=== PATIENT | male | born 1940 | race American Indian/Alaskan Native ===

== ENCOUNTER 2017-03-06 10:05 | Emergency (ER) | payer MEDICARE ==
[2017-03-06 10:13] VITALS: TEMP 98
--- NOTE | 2017-03-06 11:01 | C.PDOC ---
History Of Present Illness 77 year old male with PMHx of HTN, DM, arthritis presents to the ED for evaluation of right knee pain and chronic pedal edema. Patient reports his left leg has been swollen for a while qith n improvement, now his skin has been falling off and he has noted some bleeding. Patient states he has not seen a doctor in more than a year for evaluation of his complaints, states he used lotion with no relief. Patient denies fever, chills, nausea, vomit, diarrhea, abdominal pain, CP, SOB, weakness, numbness. Time Seen by Provider: 03/06/17 10:21 Chief Complaint (Nursing): Abnormal Skin Integrity History Per: Patient History/Exam Limitations: no limitations Onset/Duration Of Symptoms: Persistent Current Symptoms Are (Timing): Still Present Location Of Injury: Right: Leg (swelling), Left: Leg Quality Of Symptoms: Painful, Swollen Recent travel outside of the [place]: No Additional History Per: Patient Past Medical History Reviewed: Historical Data, Nursing Documentation, Vital Signs Vital Signs: Last Vital Signs Temp 98 F 03/06/17 10:09 Pulse 90 03/06/17 10:09 Resp 20 03/06/17 10:09 BP 128/71 03/06/17 10:09 Pulse Ox 99 03/06/17 12:59 - Medical History PMH: Diabetes, HTN, Hypercholesterolemia, Hyperlipidemia, Seizures Surgical History: No Surg Hx Family History: States: Unknown Family Hx - Social History Hx Tobacco Use: No Hx Alcohol Use: No Hx Substance Use: No - Immunization History Hx Tetanus Toxoid Vaccination: No Hx Influenza Vaccination: Yes Hx Pneumococcal Vaccination: No Review Of Systems Constitutional: Negative for: Fever, Chills Cardiovascular: Negative for: Chest Pain, Palpitations Respiratory: Negative for: Cough, Shortness of Breath Gastrointestinal: Negative for: Nausea, Vomiting, Abdominal Pain Musculoskeletal: Positive for: Leg Pain (B/L pedal edema). Negative for: Back Pain Skin: Positive for: Rash Neurological: Negative for: Weakness, Numbness Physical Exam - Physical Exam Appears: Non-toxic, No Acute Distress Skin: Normal Color, Warm, Dry Head: Atraumatic, Normacephalic Nose: No Discharge, No Deformity Neck: Normal ROM, Supple Chest: Symmetrical Cardiovascular: Rhythm Regular, No Murmur Respiratory: Normal Breath Sounds, No Rales, No Rhonchi, No Wheezing Gastrointestinal/Abdominal: Soft, No Tenderness, No Guarding, No Rebound Extremity: Normal ROM, Pedal Edema (B/L left > right), Calf Tenderness (slight on left leg), Capillary Refill (< 2 seconds), No Deformity, Other (desquamation of skin left lower leg, slight warmth ) Pulses: Left Dorsalis Pedis: Normal, Right Dorsalis Pedis: Normal Neurological/Psych: Oriented x3, Normal Speech, Normal Cognition ED Course And Treatment - Laboratory Results Result Diagrams: 03/06/17 11:14 03/06/17 11:14 O2 Sat by Pulse Oximetry: 99 (On RA) Pulse Ox Interpretation: Normal - Radiology CXR: Viewed By Me, Read By Radiologist CXR Interpretation: Yes: Other (Cardiomegaly. Mild pulmonary venous congestion. Bibasilar atelectasis/ infiltrates and/or small effusions.) Medical Decision Making Medical Decision Making: Impression : B/L chronic pedal edema, right knee pain Plan: * EKG * Labs * CXR * Venous Duplex Scan Disposition Counseled Patient/Family Regarding: Studies Performed, Diagnosis, Need For Followup, Rx Given - Disposition Referrals: [facility] [Outside] Disposition: HOME/ ROUTINE Disposition Time: 13:28 Condition: GUARDED Additional Instructions: Follow up in clinic Prescriptions: Mupirocin 2% Cream [Bactroban Cream] 30 applic EXT DAILY #1 tube Instructions: Venous Insufficiency (GEN) Forms: [facility] (Palestinian), General Discharge Instructions - POA Present On Arrival: None - Clinical Impression Clinical Impression: Venous stasis dermatitis - Scribe Statement The provider has reviewed the documentation as recorded by the Scribe Ivan Danielson All medical record entries made by the Scribe were at my direction and personally dictated by me. I have reviewed the chart and agree that the record accurately reflects my personal performance of the history, physical exam, medical decision making, and the department course for this patient. I have also personally directed, reviewed, and agree with the discharge instructions and disposition.
[2017-03-06 11:21] LABS: BASO % 0.4 % (0.0-2.0); EOS # 0.2 K/uL (0.0-0.7); EOS % 2.9 % (0.0-4.0); LYMPH # 1.7 K/uL (1.0-4.3); MEAN CELL VOLUME 80.2 fL (80.0-94.0); MEAN CORPUSCULAR HEMOGLOBIN 25.8 pg (27.0-31.0); MEAN CORPUSCULAR HGB CONC 32.2 g/dL (33.0-37.0); MEAN PLATELET VOLUME 8.5 fL (7.2-11.7); MONO # 0.9 K/uL (0.0-0.8); MONO % 12.8 % (0.0-10.0); NEUT # 4.3 K/uL (1.8-7.0); NEUT % 59.9 % (50.0-75.0); NRBC % 0.1 % (0.0-2.0); RBC 3.88 Mil/uL (4.40-5.90); RED CELL DISTRIBUTION WIDTH 15.7 % (11.5-14.5); WHITE BLOOD COUNT 7.1 K/uL (4.8-10.8)
[2017-03-06 11:31] LABS: ALB/GLOB RATIO 0.8 (1.0-2.1); ALBUMIN 3.5 g/dL (3.5-5.0); ALT/SGPT 18 U/L (21-72); AST/SGOT 18 U/L (17-59); BLOOD UREA NITROGEN 25 mg/dL (9-20); CALCIUM 8.2 mg/dl (8.6-10.4); GFR AFRICAN-AMERICAN 47; GFR NON-AFRICAN AMERICAN 39
[2017-03-06 11:43] LABS: B-TYPE NATRIURETIC PEPTIDE 94.3 pg/mL (0-900)
--- NOTE | 2017-03-06 12:29 | RAD ---
HISTORY: SOB COMPARISON: Chest x-ray performed 07/01/15 TECHNIQUE: Chest, one view. FINDINGS: Examination limited by habitus. LUNGS: Mild pulmonary venous congestion. Bibasilar atelectasis/ infiltrates and/or small effusions. No definite pneumothorax. Please note that chest x-ray has limited sensitivity for the detection of pulmonary masses. CARDIOVASCULAR: Cardiomegaly. OSSEOUS STRUCTURES: No acute osseous abnormality identified. VISUALIZED UPPER ABDOMEN: Unremarkable. OTHER FINDINGS: None. IMPRESSION: Cardiomegaly. Mild pulmonary venous congestion. Bibasilar atelectasis/ infiltrates and/or small effusions.
--- NOTE | 2017-03-06 12:39 | VASCLAB ---
PROCEDURE: Lower Extremity Venous Duplex Exam. HISTORY: Swelling and pain L>R PRIORS: None. TECHNIQUE: Bilateral common femoral, femoral, popliteal and posterior tibial, peroneal and great saphenous veins were evaluated. Flow was assessed with color Doppler, compressibility, assessment of phasic flow and augmentation response. Report prepared by TREE [facility] FINDINGS: RIGHT: 1. Common Femoral Vein: 1.1. Compressibility - Fully compressible: Thrombus - None : Flow - Phasic: Augmentation -Normal: Reflux - None. 2. Femoral Vein: (proximal and mid views only) 2.1. Compressibility - Fully compressible: Thrombus - None : Flow - Phasic: Augmentation -Normal: Reflux - None. 3. Popliteal Vein: 3.1. Compressibility - Fully compressible: Thrombus - None : Flow - Phasic: Augmentation -Normal: Reflux - None. 4. Posterior Tibial Vein: 4.1. Compressibility - Fully compressible: Thrombus - None: Flow - Phasic: Augmentation -Normal: Reflux - None. 5. Peroneal Vein: 5.1. Not imaged due to swelling 6. Great Saphenous Vein: 6.1. Compressibility - Fully compressible: Thrombus - None: Flow - Phasic: Augmentation - Normal: Reflux - None. LEFT: 1. Common Femoral Vein: 1.1. Compressibility - Fully compressible: Thrombus - None: Flow - Phasic: Augmentation -Normal: Reflux - None. 2. Femoral Vein: (proximal and mid views only) 2.1. Compressibility - Fully compressible: Thrombus - None: Flow - Phasic: Augmentation -Normal: Reflux - None. 3. Popliteal Vein: 3.1. Compressibility - Fully compressible: Thrombus - None : Flow - Phasic: Augmentation -Normal: Reflux - None. 4. Posterior Tibial Vein: 4.1. Compressibility - Fully compressible: Thrombus - None: Flow - Phasic: Augmentation -Normal: Reflux - None. 5. Peroneal Vein: 5.1. Not imaged due to swelling 6. Great Saphenous Vein: 6.1. Compressibility - Fully compressible: Thrombus - None: Flow - Phasic: Augmentation - Normal: Reflux - None. OTHER FINDINGS: Bilateral distal femoral and peroneal veins could not be imaged, due to swelling. IMPRESSION: Right: No evidence of deep or superficial vein thrombosis of the right lower extremity, for the imaged veins. Normal valve function noted of the right side. Left: No evidence of deep or superficial vein thrombosis of the left lower extremity , for the imaged veins. Normal valve function noted of the left side.
[2017-03-06 14:09] VITALS: BP 134/78; PULSE 78; RESP 19; O2SAT 98
--- NOTE | 2017-03-07 00:56 | CARD ---
APPROVED REPORT EKG Measurement Heart [id number] CT [id number] <Conclusion> Normal sinus rhythm Normal ECG
== END 2017-03-06 14:11 | disposition home or self-care (01) ==
LOC: C.ER 10:05
DX: I87.2 Venous insufficiency (chronic) (peripheral) (principal); I10 Essential (primary) hypertension; E11.9 Type 2 diabetes mellitus without complications; Z87.891 Personal history of nicotine dependence